=== PATIENT | male | born 1960 | race Asian ===

== ENCOUNTER 2020-08-28 18:43 | Emergency (ER) | payer SELFPAY ==
[~2020-08-28] VITALS: Ht 170.2 cm; Wt 72.7 kg
[2020-08-28 18:50] VITALS: BP 171/93
== END 2020-08-28 20:00 | disposition left against medical advice (07) ==
LOC: EMS 18:43
DX: R58 Hemorrhage, not elsewhere classified (principal); Z53.21 Procedure and treatment not carried out due to patient leaving prior to being seen by health care provider